=== PATIENT | female | born 1960 | race Two or more races ===

== ENCOUNTER 2023-09-28 01:14 | Inpatient (IN) | payer OTHER ==
[2023-09-28 01:49] LABS: BASO % 0.3 % (0-2.0); EOS % 0.1 % (0-4.5); HEMOGLOBIN 13.3 GM/dL (10.7-15.3); LYMPH % 6.4 % (8-40); MCH 32.8 pg (25.7-33.7); MEAN CELL VOLUME 93.6 fl (80-96); MEAN PLT VOLUME 8.2 fl (7.5-11.1); MONO % 7.7 % (3.8-10.2); NEUT % 85.5 % (42.8-82.8); PLATELET COUNT 201 10^3/uL (134-434); RBC 4.06 M/mm3 (3.60-5.2); RDW 12.4 % (11.6-15.6)
[2023-09-28 02:20] LABS: CHLORIDE 79 mmol/L (98-107); SODIUM 123 mmol/L (136-145)
[2023-09-28 02:23] LABS: ALBUMIN 3.5 g/dl (3.4-5.0); BLOOD UREA NITROGEN 16.2 mg/dL (7-18); CO2 34 mmol/L (21-32); GLUCOSE,RANDOM 173 mg/dL (74-106)
[2023-09-28 02:26] LABS: CREATININE 0.8 mg/dL (0.55-1.3); SGOT/AST 37 U/L (15-37); SGPT/ALT 34 U/L (13-61)
[2023-09-28 02:28] LABS: BILIRUBIN,TOTAL 0.9 mg/dL (0.2-1)
[2023-09-28 02:29] LABS: ALK PHOS 61 U/L (45-117)
[2023-09-28 02:33] LABS: ANION GAP 10 mmol/L (4-13); POTASSIUM 2.7 mmol/L (3.5-5.1)
[2023-09-28] MEDS ORDERED: OSELTAMIVIR PHOSPHATE 75 MG CAPSULE PO ONE (03:58)
[2023-09-28] MEDS ORDERED: OSELTAMIVIR PHOSPHATE 75 MG CAPSULE ONE (04:09)
[2023-09-28 04:27] LABS: MAGNESIUM 2.4 mg/dL (1.8-2.4)
[2023-09-28] MEDS ORDERED: POTASSIUM CHLORIDE ORAL LIQUID 20 MEQ/15 ML PO ONE ×2 (04:30→12:51)
[2023-09-28] MEDS ORDERED: POTASSIUM CHLORIDE ORAL LIQUID 20 MEQ/15 ML ONE ×2 (04:34→13:51)
[2023-09-28] MEDS: KCL 10 MEQ IVPB 10 MEQ/100 ML INFUS.BAG IVPB SCH ×3 (04:44→06:25)
[2023-09-28] MEDS ORDERED: SODIUM CHLORIDE 0.45% 1,000 ML IV SCH (05:15)
[2023-09-28] MEDS ORDERED: KCL 10 MEQ IVPB 10 MEQ/100 ML INFUS.BAG IVPB ONE ×2 (05:27→06:07)
[2023-09-28 06:34] LABS: BASO % 0.1 % (0-2.0); HEMATOCRIT 35.8 % (32.4-45.2); HEMOGLOBIN 12.6 GM/dL (10.7-15.3); LYMPH % 6.4 % (8-40); MCH 33.4 pg (25.7-33.7); MCHC 35.3 g/dl (32.0-36.0); MEAN CELL VOLUME 94.6 fl (80-96); MEAN PLT VOLUME 8.6 fl (7.5-11.1); MONO % 7.1 % (3.8-10.2); NEUT % 86.4 % (42.8-82.8); PLATELET COUNT 190 10^3/uL (134-434); RBC 3.79 M/mm3 (3.60-5.2); RDW 12.4 % (11.6-15.6); WHITE BLOOD COUNT 10.5 K/mm3 (4.0-10.0)
[2023-09-28 06:48] LABS: POTASSIUM 3.3 mmol/L (3.5-5.1)
[2023-09-28 06:50] LABS: CALCIUM 7.9 mg/dL (8.5-10.1)
[2023-09-28 06:51] LABS: ALBUMIN 3.4 g/dl (3.4-5.0); BLOOD UREA NITROGEN 18.1 mg/dL (7-18)
[2023-09-28 06:54] LABS: CREATININE 0.7 mg/dL (0.55-1.3)
[2023-09-28 06:55] LABS: BILIRUBIN,TOTAL 0.9 mg/dL (0.2-1); TOT PROT 6.7 g/dl (6.4-8.2)
[2023-09-28 11:17] LABS: EPI CELLS 2 /uL (0-25.1); HYALINE CASTS 3 /uL (0-3.1); PH,URINE 6.5 (5.0-8.0); URINE APPEARANCE CLEAR; URINE BACTERIA 330 /uL (0-1359); URINE BILIRUBIN NEGATIVE (NEGATIVE); URINE COLOR YELLOW; URINE GLUCOSE (UA) NEGATIVE (NEGATIVE); URINE KETONE TRACE (NEGATIVE); URINE LEUK ESTERASE 2+ (NEGATIVE); URINE NITRITE NEGATIVE (NEGATIVE); URINE PROTEIN 2+ (NEGATIVE); URINE WBC 210 /uL (0-25.8)
[2023-09-28 11:25] LABS: URINE RBC 142 /uL (0-23.9)
[2023-09-28] MEDS ORDERED: SODIUM CHLORIDE 1,000 ML IV SCH (13:00)
[2023-09-28] MEDS ORDERED: ACETAMINOPHEN 325 MG TABLET (FP) ONE (15:12)
[2023-09-28] MEDS: ACETAMINOPHEN 325 MG TABLET (FP) PO PRN (15:15)
[2023-09-28 18:24] VITALS: BMI 24.0
[2023-09-28] MEDS: OSELTAMIVIR PHOSPHATE 75 MG CAPSULE PO SCH (22:37)
[2023-09-29 07:45] LABS: HEMATOCRIT 35.7 % (32.4-45.2); HEMOGLOBIN 12.5 GM/dL (10.7-15.3); MCH 33.1 pg (25.7-33.7); MCHC 35.2 g/dl (32.0-36.0); MEAN CELL VOLUME 94.1 fl (80-96); MEAN PLT VOLUME 8.7 fl (7.5-11.1); PLATELET COUNT 213 10^3/uL (134-434); RBC 3.79 M/mm3 (3.60-5.2); RDW 12.6 % (11.6-15.6)
[2023-09-29 08:03] LABS: CHLORIDE 89 mmol/L (98-107); SODIUM 131 mmol/L (136-145)
[2023-09-29 08:12] LABS: CALCIUM 8.2 mg/dL (8.5-10.1)
[2023-09-29 08:13] LABS: ALBUMIN 3.1 g/dl (3.4-5.0); BLOOD UREA NITROGEN 8.1 mg/dL (7-18); CO2 32 mmol/L (21-32); GLUCOSE,RANDOM 104 mg/dL (74-106); MAGNESIUM 2.8 mg/dL (1.8-2.4)
[2023-09-29 08:16] LABS: CREATININE 0.6 mg/dL (0.55-1.3); SGOT/AST 38 U/L (15-37); SGPT/ALT 46 U/L (13-61)
[2023-09-29 08:17] LABS: TOT PROT 6.3 g/dl (6.4-8.2)
[2023-09-29 08:18] LABS: BILIRUBIN,TOTAL 0.7 mg/dL (0.2-1)
[2023-09-29 08:19] LABS: ALK PHOS 58 U/L (45-117)
[2023-09-29 08:24] LABS: ANION GAP 10 mmol/L (4-13); POTASSIUM 2.7 mmol/L (3.5-5.1)
[2023-09-29] MEDS: KCL 10 MEQ IVPB 10 MEQ/100 ML INFUS.BAG IVPB SCH ×3 (10:21→14:44)
[2023-09-29] MEDS: OSELTAMIVIR PHOSPHATE 75 MG CAPSULE PO SCH ×2 (10:22→21:14)
[2023-09-29] MEDS: BENZOCAINE/MENTH/CETYLPYRD CL 1 EACH LOZENGE MM PRN ×2 (10:32→21:14)
[2023-09-29] MEDS: guaiFENesin/D-METHORPHAN TAB.ER.12H PO PRN ×2 (10:33→21:15)
[2023-09-29] MEDS ORDERED: POTASSIUM CHLORIDE ORAL LIQUID 20 MEQ/15 ML PO ONE (11:42)
[2023-09-29 23:47] VITALS: RESP 20
[2023-09-30 07:19] LABS: POTASSIUM 3.3 mmol/L (3.5-5.1)
[2023-09-30 07:27] LABS: BLOOD UREA NITROGEN 8.2 mg/dL (7-18); CALCIUM 8.4 mg/dL (8.5-10.1)
[2023-09-30 07:28] LABS: ALBUMIN 3.1 g/dl (3.4-5.0)
[2023-09-30 07:30] LABS: CREATININE 0.5 mg/dL (0.55-1.3)
[2023-09-30 07:32] LABS: BILIRUBIN,TOTAL 0.6 mg/dL (0.2-1); TOT PROT 6.6 g/dl (6.4-8.2)
[2023-09-30] MEDS: OSELTAMIVIR PHOSPHATE 75 MG CAPSULE PO SCH ×2 (10:15→22:41)
[2023-09-30] MEDS: BENZOCAINE/MENTH/CETYLPYRD CL 1 EACH LOZENGE MM PRN ×3 (10:26→21:27)
[2023-09-30] MEDS ORDERED: POTASSIUM CHLORIDE ORAL LIQUID 20 MEQ/15 ML PO ONE (12:32)
[2023-09-30] MEDS: ACETAMINOPHEN 325 MG TABLET (FP) PO PRN (18:45)
[2023-09-30] MEDS: guaiFENesin/D-METHORPHAN TAB.ER.12H PO PRN (18:50)
[2023-10-01] MEDS: ACETAMINOPHEN 325 MG TABLET (FP) PO PRN (06:50)
[2023-10-01] MEDS ORDERED: VALSARTAN 80 MG TABLET PO SCH (10:00)
[2023-10-01 10:37] LABS: HEMATOCRIT 38.8 % (32.4-45.2); HEMOGLOBIN 12.9 GM/dL (10.7-15.3); MCH 31.9 pg (25.7-33.7); MCHC 33.2 g/dl (32.0-36.0); MEAN CELL VOLUME 96.1 fl (80-96); MEAN PLT VOLUME 7.8 fl (7.5-11.1); PLATELET COUNT 309 10^3/uL (134-434); RBC 4.04 M/mm3 (3.60-5.2); RDW 12.2 % (11.6-15.6); WHITE BLOOD COUNT 8.7 K/mm3 (4.0-10.0)
[2023-10-01 10:56] LABS: POTASSIUM 3.3 mmol/L (3.5-5.1)
[2023-10-01 10:59] LABS: CALCIUM 8.8 mg/dL (8.5-10.1)
[2023-10-01 11:00] LABS: ALBUMIN 3.1 g/dl (3.4-5.0); BLOOD UREA NITROGEN 11.3 mg/dL (7-18)
[2023-10-01 11:03] LABS: CREATININE 0.6 mg/dL (0.55-1.3)
[2023-10-01 11:04] LABS: TOT PROT 6.7 g/dl (6.4-8.2)
[2023-10-01] MEDS: AMOX TR/POT CLAV 875MG/125MG TABLETS (FP) PO SCH ×2 (11:04→17:27)
[2023-10-01 11:06] LABS: BILIRUBIN,TOTAL 0.5 mg/dL (0.2-1)
[2023-10-01] MEDS: OSELTAMIVIR PHOSPHATE 75 MG CAPSULE PO SCH (11:08)
[2023-10-01] MEDS ORDERED: POTASSIUM CHLORIDE ORAL LIQUID 20 MEQ/15 ML PO ONE (14:15)
[2023-10-01] MEDS ORDERED: SODIUM CHLORIDE 1 GM TABLET PO SCH (14:15)
[2023-10-01 15:26] VITALS: BP 123/58; PULSE 93; TEMP 98.8
== END 2023-10-01 18:20 | disposition home or self-care (01) | DRG 204 ==
LOC: JER 01:14 → JERBED 02:52 → J4W 18:03
PROVIDERS: ADMIT Internal Medicine; ATTEND Internal Medicine
PROC: 0HQ1XZZ Repair Face Skin, External Approach (ICD-10-PCS; principal; 2023-09-28)
DX: R55 Syncope and collapse (principal); E87.1 Hypo-osmolality and hyponatremia; I10 Essential (primary) hypertension; E78.5 Hyperlipidemia, unspecified; E87.6 Hypokalemia; J10.1 Influenza due to other identified influenza virus with other respiratory manifestations; S01.81XA Laceration without foreign body of other part of head, initial encounter; W19.XXXA Unspecified fall, initial encounter; Y93.9 Activity, unspecified; Y92.89 Other specified places as the place of occurrence of the external cause; Y99.9 Unspecified external cause status
CPT/HCPCS: 0241U-QW; 36415; 70450-TC; 70486-TC; 71045-TC-FY; 72125-TC; 73110-TC-LT-FY; 73130-TC-LT-FY; 80053; 81003; 82570; 83735; 84300; 84484; 85025; 85027; 87086; 87186; 93005; 93010; 99285-25